=== PATIENT | male | born 1945 | race Caucasian/White ===

== ENCOUNTER → 2017-04-29 | Outpatient (CLI) | payer MEDICARE, BC ==
[~2017-04-29] MED LIST: ATEN50TA PO; ATOR40TA PO; CONTRAST GIVEN MC PRN; DIPH25CA58 PO; IOHEXOL 240 MG/ML 50ML VIAL. PO ONE; IOHEXOL 300 MG/ML 75 ML VIAL IV ONE; LATA2.5D2 OP; LORA10TA68 PO; OXYC5TAB95 PO; PROC10TA57 PO; TAMS0.4C97 PO; TEMA30CA6 PO
--- NOTE | 2017-04-29 11:22 | RAD ---
Examination: CT chest abdomen pelvis with contrast History: History of follow-up rectal cancer Comparison: 02/21/2015 Technique: Axial CT images of the chest abdomen pelvis were performed with IV contrast. Coronal and sagittal reformats are performed. Oral contrast was used for CT of the abdomen pelvis PQRS Compliance Statement: One or more of the following individualized dose reduction techniques were utilized for this examination: 1. Automated exposure control 2. Adjustment of the mA and/or kV according to patient size 3. Use of iterative reconstruction technique Findings: The visualized thyroid gland grossly appears unremarkable. Coronary artery calcifications identified. The heart size grossly appears unremarkable. There is a focus of airspace opacity identified in the right lower lobe of the lung medially adjacent to the pleura measuring 1.4 cm could be prior radiation therapy however malignancy is not completely excluded. The bibasal lungs are clear. Prior partial resection of the liver. Decreased attenuation in the left lobe of the liver likely hepatic steatosis. The visualized spleen, adrenals grossly appears unremarkable. The stomach is mildly distended. The small bowel is nondilated. Feces and gas noted throughout the colon. Prior surgical changes identified in the region of the rectum. Urinary bladder is mildly distended. Moderate enlarged prostate gland. The bilateral kidneys enhance symmetrically. Punctate 1 mm intrarenal collecting system calculus left kidney. Moderate aortic atherosclerosis. Mild degenerative changes thoracal lumbar spine. Impression: 1. Focus of airspace opacity identified in the right lower lobe of the lung could be prior therapeutic changes. Correlate clinically. If there is no evidence of treatment in the right lower lobe of the lung ,consider PET/CT scan. 2. Prior surgical changes identified in the liver and the rectum. 3. Moderate prostamegaly. 4. Punctate 1 mm intrarenal collecting system calculus left kidney.
== END | disposition home or self-care (01) ==
LOC: CT 08:31
PROVIDERS: ATTEND Internal Medicine Hematology & Oncology
DX: C20 Malignant neoplasm of rectum (principal); C78.7 Secondary malignant neoplasm of liver and intrahepatic bile duct; N40.0 Benign prostatic hyperplasia without lower urinary tract symptoms; N20.0 Calculus of kidney; I70.0 Atherosclerosis of aorta; M47.895 Other spondylosis, thoracolumbar region
CPT/HCPCS: 71260; 74177; Q9966; Q9967

== ENCOUNTER → 2017-11-18 | Outpatient (CLI) | payer MEDICARE, BC | END | disposition home or self-care (01) | LOC: PETSC 09:33 | DX: C20 Malignant neoplasm of rectum (principal); C78.7 Secondary malignant neoplasm of liver and intrahepatic bile duct; N40.0 Benign prostatic hyperplasia without lower urinary tract symptoms; Z87.442 Personal history of urinary calculi | CPT/HCPCS: 78815; A9552 ==

== ENCOUNTER → 2017-12-03 | Day surgery (SDC) | payer MEDICARE, BC ==
[~2017-12-03] MED LIST changes: -ATEN50TA PO; -ATOR40TA PO; -CONTRAST GIVEN MC PRN; -DIPH25CA58 PO; +EPINEPHrine 1 MG/ML VIAL; -IOHEXOL 240 MG/ML 50ML VIAL. PO ONE; -IOHEXOL 300 MG/ML 75 ML VIAL IV ONE; -LATA2.5D2 OP; +LIDOCAINE 1% PF 2 ML VIAL. ID; -LORA10TA68 PO; +MORPHINE SULFATE 4 MG/ML DISP.SYRIN. IV; +ONDANSETRON PF 4 MG/2 ML VIAL. IV; -OXYC5TAB95 PO; -PROC10TA57 PO; +PROCHLORPERAZINE 10 MG/2 ML VIAL. IV; +PROPOFOL 20 ML IV; -TAMS0.4C97 PO; -TEMA30CA6 PO; +fentaNYL PF VIAL 100 MCG/2 ML VIAL IV
[2017-12-03 11:13] LABS: ADD MAN DIFF? NO
[2017-12-03] MEDS: ALBUTEROL SULFATE 2.5 MG/3 ML NEBU. NEB (11:20)
[2017-12-03] MEDS: IV RINGERS,LACTATED 1000ML 1,000 ML IV (11:25)
[2017-12-03 11:33] LABS: BASO # 0.1 x10^3/uL (0.0-0.2); BASO % 1 % (0-3); EOS # 0.2 x10^3/uL (0.0-0.7); EOS % 3 % (0-3); HEMATOCRIT 38.7 % (39.0-53.0); HEMOGLOBIN 12.9 g/dL (13.0-17.5); LYMPH # 0.8 x10^3/uL (1.0-4.8); LYMPH % 14 % (24-48); MEAN CORPUSCULAR HEMOGLOBIN 30 pg (25-35); MEAN CORPUSCULAR HGB CONC 33 g/dL (31-37); MEAN CORPUSCULAR VOLUME 91 fL (79-100); MONO # 0.6 x10^3/uL (0.0-1.1); MONO % 11 % (0-9); NEUT # 3.9 x10^3uL (1.8-7.7); NEUT % 71 % (31-73); PLATELET COUNT 234 x10^3/uL (140-400); RED BLOOD COUNT 4.25 x10^6/uL (4.30-5.70); RED CELL DISTRIBUTION WIDTH 14.4 % (11.5-14.5); WHITE BLOOD COUNT 5.5 x10^3/uL (4.0-11.0)
[2017-12-03 11:39] LABS: PROTHROMBIN TIME PATIENT 12.3 SEC (11.7-14.0)
== END | disposition home or self-care (01) ==
LOC: SURG 10:32
DX: C34.90 Malignant neoplasm of unspecified part of unspecified bronchus or lung (principal); E78.00 Pure hypercholesterolemia, unspecified; I10 Essential (primary) hypertension; F17.210 Nicotine dependence, cigarettes, uncomplicated; H40.9 Unspecified glaucoma; Z98.42 Cataract extraction status, left eye; Z98.41 Cataract extraction status, right eye; Z98.890 Other specified postprocedural states; Z85.118 Personal history of other malignant neoplasm of bronchus and lung; Z90.49 Acquired absence of other specified parts of digestive tract; Z98.52 Vasectomy status
CPT/HCPCS: 31622; 31623; 31625; 36415; 85025; 85610; 88104; 88112; 88305; 88341; 88342; 94640; J0171; J2704; J7613

== ENCOUNTER → 2018-03-31 | Outpatient (CLI) | payer MEDICARE, BC ==
[2017-12-03 12:40] VITALS: BP 144/68
[~2018-03-31] MED LIST changes: +ATEN50TA PO; +ATOR40TA PO; +DIPH25CA58 PO; -EPINEPHrine 1 MG/ML VIAL; +LATA2.5D2 OP; -LIDOCAINE 1% PF 2 ML VIAL. ID; +LORA10TA68 PO; -MORPHINE SULFATE 4 MG/ML DISP.SYRIN. IV; +ONDA8TAB9 PO; -ONDANSETRON PF 4 MG/2 ML VIAL. IV; +OXYC5TAB95 PO; +POLY17PO29 PO; +PROC10TA57 PO; -PROCHLORPERAZINE 10 MG/2 ML VIAL. IV; -PROPOFOL 20 ML IV; +TAMS0.4C97 PO; +TEMA30CA6 PO; -fentaNYL PF VIAL 100 MCG/2 ML VIAL IV
--- NOTE | 2018-04-01 16:16 | RAD ---
Examination: PET W CT SKULL TO MIDTHIGH History: Restaging lung metastases. Colon cancer is reported. Comparison/Correlation: 11/18/2017 PET/CT skull base of proximal thighs, CT chest abdomen and pelvis with contrast 04/29/2017 Findings: PET CT exam from skull base to proximal thighs was performed utilizing 14.2 mCi F-18 FDG. SUV max of the liver is 3. Serum blood glucose at the time of radiotracer injection was 114 mg/dL. Uptake of the partially visualized head and neck is unremarkable. Right medial basilar atelectasis is present. A smaller mass which had mass effect upon the right distal main stem bronchus seen previously is notably decreased in the interval. No luminal narrowing evident. No suspicious uptake at the site. A mass along the posterior margin of the right hilum has SUV max of up to 4. This is unchanged in size and morphology compared to the prior exam. There is however new atelectasis along the posterior margin of this masslike process with SUV uptake of 3.5. There is a nodule at the lateral left upper lung field which abuts the pleura and this measures less than 0.7 cm diameter. It has remained stable. Coronary arterial calcification is present. Right hepatectomy noted. Radiotracer along the course of the esophagus is predominantly physiologic. Uptake of radiotracer involving the abdomen and pelvis is unremarkable with physiologic uptake within bowel present. Prostatomegaly is present. Impression: Resolution of a mass along the posterior right distal main stem bronchus. No luminal narrowing at this site. Additional larger mass more inferiorly along the posterior aspect of the right hilum is stable with uptake again noted. In addition, there is atelectasis with uptake which is presumably represents underlying inflammation posterior to this mass. Correlate with treatment history in determining interval follow-up CT of the chest with contrast to further evaluate. No interval development of metastatic involvement.
== END | disposition home or self-care (01) ==
LOC: PETSC 11:06
PROVIDERS: ATTEND Radiology Radiation Oncology
DX: C78.01 Secondary malignant neoplasm of right lung (principal); C20 Malignant neoplasm of rectum; J98.11 Atelectasis; I25.10 Atherosclerotic heart disease of native coronary artery without angina pectoris; N40.0 Benign prostatic hyperplasia without lower urinary tract symptoms; I10 Essential (primary) hypertension; E78.00 Pure hypercholesterolemia, unspecified; F17.200 Nicotine dependence, unspecified, uncomplicated; Z92.3 Personal history of irradiation
CPT/HCPCS: 78815; A9552

== ENCOUNTER → 2018-07-21 | Outpatient (CLI) | payer MEDICARE, BC ==
[2017-12-03 12:40] VITALS: BP 144/68
[~2018-07-21] MED LIST changes: +OXYC5TAB4 PO; -OXYC5TAB95 PO
--- NOTE | 2018-07-21 11:43 | RAD ---
FDG tumor localization scan, PET/CT, 07/21/2018: History: Restaging rectal cancer Following IV injection of 14.3 mCi of 18 F-FDG, imaging was performed from the skull base to the proximal thighs. The noncontrast CT component was performed for attenuation correction and anatomic localization purposes rather than for primary diagnosis. The patient's blood glucose level to time injection was 106 MG/DL. Comparison is made to a study from 03/31/2018. Numerous foci of abnormal FDG uptake have developed in the liver. These correspond to areas of decreased density on the CT component. The maximum SUV in these lesions is in the 6-7 range. There is a hypermetabolic focus related to a proximal sigmoid soft tissue density which has progressed since the previous study. The maximum SUV at this level is currently 16.3. A deep pelvic claudia type density on the left has also increased in size and the degree of FDG uptake. It is difficult to measure due to its irregular margins and proximity to the left seminal vesicle, however, it measures approximately 20 mm in width. Its maximum SUV is 9.2 compared to value of 6.9 on the previous study. No additional hypermetabolic pelvic adenopathy is seen. There is hypermetabolic infiltrate along the posterior aspect of the right hilum in the right lower lobe. The maximum SUV in this region is 4.6. The overall infiltrate appears to have worsened slightly since the previous study. A hypermetabolic focus along the posterior aspect of the distal right main bronchus persists, although difficult to separate from the hypermetabolic infiltrate. The underlying major bronchi are not significantly stenotic. There is a 9 mm peripheral nodule in the lateral aspect of the left upper lobe which has increased in size since the previous study. It is now mildly hypermetabolic with a maximum SUV of 2.7. A metastasis is suspected. Physiologic activity is evident in the neck. No hypermetabolic neck lesion is seen. There is increased FDG uptake within the T7 vertebral body which was not evident on the previous exam. This could be on a metastatic or traumatic basis. IMPRESSION: 1. Enlarging hypermetabolic proximal sigmoid mass suggesting colonic malignancy. 2. Progression of the hypermetabolic deep left pelvic adenopathy. 3. Numerous hypermetabolic liver lesions have developed compatible with metastatic disease. 4. Enlarging hypermetabolic left upper lobe pulmonary nodule compatible with a lung metastasis. 5. Right infrahilar hypermetabolic infiltrate has progressed slightly. 6. T7 vertebral body lesion raising the possibility of metastatic disease. 6.
== END | disposition home or self-care (01) ==
LOC: PETSC 08:52
PROVIDERS: ATTEND Internal Medicine Hematology & Oncology
DX: C78.01 Secondary malignant neoplasm of right lung (principal); C78.7 Secondary malignant neoplasm of liver and intrahepatic bile duct; K76.89 Other specified diseases of liver; R91.1 Solitary pulmonary nodule; R59.0 Localized enlarged lymph nodes; Z85.048 Personal history of other malignant neoplasm of rectum, rectosigmoid junction, and anus
CPT/HCPCS: 78815; A9552

== ENCOUNTER → 2018-07-26 | Outpatient (CLI) | payer MEDICARE, BC ==
[2017-12-03 12:40] VITALS: BP 144/68
[~2018-07-26] MED LIST changes: +GADOBUTROL 7.5 MMOL/7.5 ML VIAL IV ONE
--- NOTE | 2018-07-26 12:03 | RAD ---
MRI Thoracic Spine without and with contrast History: Liver and rectal cancer, abnormal thoracic spine on PET scan Technique: Multiplanar, multi sequential pre and postcontrast MR imaging was performed of the thoracic spine. Comparison: There is no previous similar exam available, correlation made with July 21, 2018 PET/CT exam Findings: There is T7 compression fracture primarily with involvement of the superior vertebral body, associated edema and enhancement. There is negligible retropulsion on the left inferiorly. There is some associated relative trabecular thickening. No other defined edematous marrow lesion is identified. Thoracic vertebral body stature is maintained at other levels. AP alignment is within normal limits. Thoracic cord caliber is within normal limits, no focal signal abnormality or enhancement. There is no focal posterior disc abnormality. There is no significant thoracic spinal stenosis. There is moderate narrowing of the left T7-8 neural foramen due to minimal osseous retropulsion and facet degenerative change, very mild narrowing of the right T8-9 neural foramen by facet degenerative change. There is mild disc desiccation and mid to inferior thoracic levels. There is abnormal right perihilar signal abnormality. Impression: 1. Corresponding with the CT findings, there is recent T7 compression fracture with associated edema. There is associated enhancement although this can be normally seen with recent compression fractures, no significant bone expansion. There may be underlying component of hemangioma. Other underlying edematous marrow lesion (metastasis) is difficult to entirely exclude although considered less likely. No other suspicious edematous marrow lesion is identified. Electronically signed by: Nirmal Etsrada MD (07/26/2018 11:59 AM) [id number]
== END | disposition home or self-care (01) ==
LOC: MRI 10:00
PROVIDERS: ATTEND Internal Medicine Hematology & Oncology
DX: M48.54XD Collapsed vertebra, not elsewhere classified, thoracic region, subsequent encounter for fracture with routine healing (principal); M48.04 Spinal stenosis, thoracic region; R60.0 Localized edema; Z85.048 Personal history of other malignant neoplasm of rectum, rectosigmoid junction, and anus; Z85.05 Personal history of malignant neoplasm of liver
CPT/HCPCS: 72157; A9585

== ENCOUNTER 2018-09-27 08:27 | Outpatient (CLI) | payer MEDICARE, BC ==
[2017-12-03 12:40] VITALS: BP 144/68
[~2018-09-27 08:27] MED LIST changes: -GADOBUTROL 7.5 MMOL/7.5 ML VIAL IV ONE
[2018-09-27] MEDS ORDERED: MIDAZOLAM HCL/PF 2 MG/2 ML VIAL. ONE (08:59)
[2018-09-27] MEDS ORDERED: FLUMAZENIL 0.5 MG/5 ML VIAL. IV ONE (09:00)
[2018-09-27] MEDS ORDERED: fentaNYL PF VIAL 100 MCG/2 ML VIAL ONE (09:00)
[2018-09-27] MEDS ORDERED: NALOXONE 0.4 MG/ML VIAL. ONE (09:00)
[2018-09-27 09:24] LABS: BASO % 1 % (0-3); EOS # 0.1 x10^3/uL (0.0-0.7); EOS % 5 % (0-3); HEMOGLOBIN 9.9 g/dL (13.0-17.5); LYMPH # 0.5 x10^3/uL (1.0-4.8); LYMPH % 20 % (24-48); MEAN CORPUSCULAR HEMOGLOBIN 28 pg (25-35); MEAN CORPUSCULAR HGB CONC 32 g/dL (31-37); MEAN CORPUSCULAR VOLUME 86 fL (79-100); MONO # 0.4 x10^3/uL (0.0-1.1); MONO % 16 % (0-9); NEUT # 1.4 x10^3uL (1.8-7.7); NEUT % 59 % (31-73); PLATELET COUNT 207 x10^3/uL (140-400); RED CELL DISTRIBUTION WIDTH 16.6 % (11.5-14.5); WHITE BLOOD COUNT 2.3 x10^3/uL (4.0-11.0)
[2018-09-27 09:31] LABS: CALCIUM 8.5 mg/dL (8.5-10.1); POTASSIUM 3.7 mmol/L (3.5-5.1)
[2018-09-27 09:37] LABS: ALBUMIN 2.9 g/dL (3.4-5.0); ALBUMIN/GLOBULIN RATIO 0.9 (1.0-1.7); TOTAL BILIRUBIN 0.3 mg/dL (0.2-1.0); TOTAL PROTEIN 6.3 g/dL (6.4-8.2)
--- NOTE | 2018-09-27 09:51 | NUR ---
Pt VSS. Port accessed. Labs sent. Pt spoke with Dr. Cazares and is not having any pain at this time. After discussing the pros and cons of the procedure it was decided by the patient to wait for the procedure, due to having no pain for the last couple of days. Port access discontinued, patient dressed, and walked out with to outpatient entrance.
[2018-09-27 09:57] LABS: PROTHROMBIN TIME PATIENT 13.5 SEC (11.7-14.0)
== END 2018-09-27 10:00 | disposition home or self-care (01) ==
LOC: INTRAD 08:27
PROVIDERS: ATTEND Surgery
DX: M84.48XA Pathological fracture, other site, initial encounter for fracture (principal); Z98.890 Other specified postprocedural states
CPT/HCPCS: 36415; 80053; 85025; 85610

== ENCOUNTER → 2018-12-01 | Outpatient (CLI) | payer MEDICARE, BC ==
[2017-12-03 12:40] VITALS: BP 144/68
--- NOTE | 2018-12-01 13:58 | RAD ---
FDG tumor localization scan, PET/CT, 12/01/2018: History: Restaging colon cancer Following IV injection of 14.3 mCi of 18 F-FDG, imaging was performed from the skull base to the proximal thighs. The noncontrast CT component was performed for attenuation correction and anatomic localization purposes rather than for primary diagnosis. The patient's blood glucose level at the time of injection was 118 MG/DL. Comparison is made to a study from 07/21/2018. Increased marrow uptake has developed in the majority of the bones. This likely represents a rebound response related to chemotherapy. There has been sparing of several midthoracic vertebral bodies and right ribs. Has there been previous radiation therapy to that region? There is a 10 mm subpleural nodule in the lateral aspect of the left upper lobe which measured 9 mm on the previous study. It demonstrates only low level FDG uptake, less than that seen on the previous study. There is ongoing consolidation along the inferior aspect of the right hilum which demonstrates increased FDG uptake with a maximum SUV of 3.3. A similar appearance was present on the previous study. There has been previous partial resection of the right hepatic lobe. There are multiple low density liver lesions which have increased in size and number. For example a lesion along the inferior aspect of the left lobe currently measures 27 x 19 mm compared to a measurement of 22 x 13 mm on the previous study. The liver lesions demonstrate a maximum SUV of 5-6 A hypermetabolic focus in the proximal sigmoid region has decreased in the degree of FDG uptake and apparent size. It demonstrates a maximum SUV of 6.0 on today's exam, compared to a value of 16.3 on the previous study. A hypermetabolic deep pelvic nodule on the left which measured 16 mm in greatest diameter on the previous study now measures 12 mm. The degree of FDG uptake has decreased with a current maximum SUV of 4.2 compared to value of 11.3 on the previous study. No new hypermetabolic abdominal or pelvic process is seen. IMPRESSION: Mixed response to therapy with: 1. Slight decrease in size and degree of FDG uptake of the proximal sigmoid lesion and left pelvic hypermetabolic node. 2. Increase in size and number of the hypermetabolic liver lesions. 3. Persistent small left upper lobe pulmonary nodule demonstrating less intense FDG uptake than on the previous study. 4. Extensive increased FDG marrow uptake which probably represents a rebound response secondary to chemotherapy. Osseous metastatic disease is less likely. The avid uptake of the bones is likely reducing the current SUV measurements of the pathologic lesions.
== END | disposition home or self-care (01) ==
LOC: PETSC 08:02
PROVIDERS: ATTEND Internal Medicine Hematology & Oncology
DX: C20 Malignant neoplasm of rectum (principal); K63.89 Other specified diseases of intestine; K76.89 Other specified diseases of liver; Z88.8 Allergy status to other drugs, medicaments and biological substances; Z92.21 Personal history of antineoplastic chemotherapy; Z85.038 Personal history of other malignant neoplasm of large intestine
CPT/HCPCS: 78815; A9552